=== PATIENT | male | born 1975 | race Two or more races ===

== ENCOUNTER 2021-07-01 12:59 | Emergency (ER) | payer SELFPAY ==
[~2021-07-01] VITALS: Ht 185.4 cm; Wt 113.4 kg
[2021-07-01 13:39] LABS: Urine Bacteria NONE SEEN /hpf (None Seen); Urine Blood Negative /uL (Negative); Urine Mucus FEW (None Seen); Urine Specific Gravity 1.027 (1.001-1.035); Urine WBC 1 /hpf (0 - 3)
[2021-07-01 13:46] LABS: Basophils # (auto) 0 10 ^3/uL (0-0.2); Basophils % (auto) 0.3 % (0.0-2.0); Eosinophils # (auto) 0 10 ^3/uL (0-0.8); Eosinophils % (auto) 0.3 % (0.0-7.0); Hematocrit 45.1 % (41.0-53.0); Hemoglobin 14.4 g/dL (13.5-17.5); Lymphocytes # (auto) 0.4 10 ^3/uL (0.4-5.4); Lymphocytes % (auto) 7.6 % (10.0-50.0); Mean Corpuscular Hemoglobin 28.5 pg (28.0-32.0); Mean Corpuscular Hgb Conc. 31.9 g/dL (32.0-36.0); Mean Corpuscular Volume 89.3 fL (80.0-100.0); Monocytes # (auto) 0.2 10 ^3/uL (0-1.3); Monocytes % (auto) 4.6 % (0.0-12.0); Neutrophils # (auto) 4.6 10 ^3/uL (1.6-8.6); Neutrophils % (auto) 87.2 % (37.0-80.0); Red Blood Cells 5.05 10^6/uL (4.5-5.90); Red Cell Distribution Width 13.9 % (11.8-14.3); White Blood Cell 5.3 10^3/uL (4.4-10.8)
[2021-07-01] MEDS ORDERED: diphenhdrAMINE HCL 50 MG/1 ML VL IV ONE ×2 (14:00→18:45)
[2021-07-01 14:26] LABS: Potassium 4.2 mmol/L (3.5-5.1)
[2021-07-01 14:28] LABS: Magnesium 2.3 mg/dL (1.6-2.6)
[2021-07-01 14:30] LABS: Albumin 3.7 g/dL (3.4-5.0); BUN/Creatinine Ratio 8.3; Calcium 9.3 mg/dL (8.5-10.1)
[2021-07-01 14:32] LABS: Total Protein 7.1 g/dL (6.4-8.2)
[2021-07-01] MEDS ORDERED: FAMOTIDINE (10MG/ML) 2ML VL IV ONE (16:15)
[2021-07-01] MEDS ORDERED: methylPREDNISolone SOD SUCC 125 MG/2 ML VL IV ONE (16:15)
[2021-07-01] MEDS ORDERED: SODIUM CHLORIDE 0.9% 500 ML IV ONE (16:30)
[2021-07-01 18:56] VITALS: BP 128/82
[2021-07-01] MEDS ORDERED: PRED20TA2 PO (19:07)
[2021-07-01] MEDS ORDERED: EPIN0.1I11 IJ (19:22)
== END 2021-07-01 19:11 | disposition home or self-care (01) ==
LOC: ER 12:59
DX: L50.9 Urticaria, unspecified (principal); R10.9 Unspecified abdominal pain
CPT/HCPCS: 36415; 74176; 80053; 81001; 83690; 83735; 85025; 96374; 96375; 96376; 99285; J1200; J2930; J3490; J7040